=== PATIENT | female | born 1945 | race Caucasian/White ===

== ENCOUNTER 2023-09-10 16:28 | Inpatient (IN) | payer MEDICARE ==
[~2023-09-10] VITALS: Ht 167.6 cm; Wt 63.5 kg
[2023-09-10] MEDS ORDERED: MAGNESIUM HYDROXIDE 30 ML UDC PO PRN (20:00)
[2023-09-10] MEDS ORDERED: ACETAMINOPHEN 325 MG TABLET PO PRN (20:00)
[2023-09-10] MEDS ORDERED: MAG HYDROX/AL HYDROX/SIMETH 30 ML UDC PO PRN (20:00)
[2023-09-10] MEDS ORDERED: LORAZEPAM 0.5 MG TABLET PO PRN (20:00)
[2023-09-10] MEDS ORDERED: TEMAZEPAM 7.5 MG CAPSULE PO PRN (20:00)
[2023-09-10] MEDS: BLOOD SUGAR DIAGNOSTIC 1 EACH STRIP IN ONE (20:38)
[2023-09-10 21:41] VITALS: BP 122/70; TEMP 98; O2SAT 98
[2023-09-10 21:42] VITALS: BP 122/70; TEMP 98; O2SAT 98
[2023-09-10 21:43] VITALS: BP 122/70; TEMP 98; O2SAT 98
[2023-09-11 07:43] LABS: BASOPHILS % (AUTO) 0.7 % (0.0-2.0); EOSINOPHILS # (AUTO) 0.1 K/uL (0.0-0.7); EOSINOPHILS % (AUTO) 2.1 % (0.0-6.0); HEMATOCRIT 39 % (33-45); HEMOGLOBIN 13.1 g/dL (11.5-14.8); LYMPHOCYTES # (AUTO) 1.6 K/uL (0.8-4.8); LYMPHOCYTES % (AUTO) 29.5 % (20.0-44.0); MEAN CORPUSCULAR HEMOGLOBIN 29 PG (26.0-33.0); MEAN CORPUSCULAR HGB CONC 34 g/dl (31.0-36.0); MEAN CORPUSCULAR VOLUME 87 fL (82-100); MONOCYTES # (AUTO) 0.4 K/uL (0.1-1.30); MONOCYTES % (AUTO) 7.9 % (2.0-12.0); NEUTROPHILS # (AUTO) 3.2 K/uL (1.8-8.9); NEUTROPHILS % (AUTO) 59.8 % (43.0-81.0); PLATELET COUNT (AUTO) 246 K/uL (150-450); RED BLOOD CELL COUNT(AUTO) 4.46 MIL/uL (4.0-5.2); RED CELL DISTRIBUTION WIDTH 14.8 % (11.5-15.0); WHITE BLOOD COUNT (AUTO) 5.4 K/uL (4.3-11.0)
[2023-09-11 08:00] VITALS: BP 96/66; TEMP 98.2; O2SAT 98
[2023-09-11 08:04] LABS: CALCIUM, SERUM 8.6 mg/dL (8.5-10.1); CARBON DIOXIDE 20 mmol/L (21-32); CHLORIDE 104 mmol/L (98-107); CREATININE 0.9 mg/dL (0.6-1.3); GLUCOSE 53 mg/dL (74-106); POTASSIUM 3.9 mmol/L (3.5-5.1); SODIUM SERUM 140 mmol/L (136-145); UREA NITROGEN, BLOOD 24 mg/dL (7-18)
[2023-09-11 08:26] LABS: CHOLESTEROL 212 mg/dL (<200); HDL CHOLESTEROL 87 mg/dL (40-60); LDL 94 mg/dL (0-99); TRIGLYCERIDES 105 mg/dL (30-150)
[2023-09-11 16:09] VITALS: BP 97/57; TEMP 98.6; O2SAT 96
[2023-09-11 20:42] VITALS: BP 113/68; TEMP 98.4; O2SAT 96
[2023-09-11] MEDS: risperiDONE 1 MG TABLET PO SCH (21:55)
[2023-09-12 08:00] VITALS: BP 100/66; TEMP 98.1; O2SAT 96
[2023-09-12 16:00] VITALS: BP 110/55; TEMP 98.4; O2SAT 95
[2023-09-12 16:48] LABS: APPEARANCE,URINE CLOUDY (CLEAR); BILIRUBIN,URINE NEGATIVE (NEGATIVE); BLOOD, URINE 2+ Ery/uL (NEGATIVE); COLOR,URINE YELLOW (YELLOW); KETONES,URINE NEGATIVE (NEGATIVE); LEUKOCYTE ESTERASE ,URINE 3+ (NEGATIVE); NITRITE, URINE NEGATIVE (NEGATIVE); PROTEIN,URINE NEGATIVE (NEGATIVE); UGLUCOSE NEGATIVE (NEGATIVE); UROBILINOGEN,URINE 0.2 EU/dL (0.2)
[2023-09-12 16:56] LABS: ADD URINE CULTURE YES; BACTERIA,URINE 1+ /HPF (None Seen); SQUAMOUS EPITHELIAL CELL,UR Few /HPF (None Seen)
[2023-09-12 16:57] LABS: CALCIUM OXALATE CRYSTALS,UR Few /HPF (None Seen)
[2023-09-12 17:17] LABS: AMPHETAMINE, URINE NEGATIVE (NEGATIVE); BARBITURATE, URINE NEGATIVE (NEGATIVE); BENZODIAZEPINE, URINE NEGATIVE (NEGATIVE); COCCAINE, URINE NEGATIVE (NEGATIVE); OPIATE, URINE NEGATIVE (NEGATIVE); PHENCYCLIDINE SCREEN,URINE NEGATIVE (NEGATIVE)
[2023-09-12 17:18] LABS: CANNABINOID, URINE POSITIVE (NEGATIVE)
[2023-09-12] MEDS: NITROFURANTOIN/MONOHYDRATE MACROCRYSTALS 100 MG CAPSULE PO SCH (22:00)
[2023-09-13 08:00] VITALS: BP 100/55; TEMP 98.1; O2SAT 97
[2023-09-13 16:00] VITALS: BP 125/62; TEMP 98.7; O2SAT 98
[2023-09-14 08:00] VITALS: BP 119/68; TEMP 98.1; O2SAT 100
[2023-09-14 16:00] VITALS: BP 108/63; TEMP 97.7; O2SAT 97
[2023-09-14 20:00] VITALS: BP 98/61; TEMP 98; O2SAT 98; O2SAT 99
[2023-09-15 08:00] VITALS: BP 107/63; TEMP 98.5; O2SAT 97
[2023-09-15 16:00] VITALS: BP 114/56; TEMP 98.3; O2SAT 98
[2023-09-15 20:09] VITALS: BP 104/47; TEMP 98.2; O2SAT 98
[2023-09-16 08:00] VITALS: BP 122/57; TEMP 97.7; O2SAT 94
[2023-09-16] MEDS: risperiDONE 1 MG TABLET PO SCH (12:37)
[2023-09-16 16:00] VITALS: BP 124/68; TEMP 97.8; O2SAT 96
[2023-09-17 08:00] VITALS: BP 99/63; TEMP 98; O2SAT 97
[2023-09-17 16:00] VITALS: BP 118/63; TEMP 97.8; O2SAT 96
[2023-09-17 20:00] VITALS: BP 105/54; TEMP 97.8; O2SAT 96
[2023-09-18 08:00] VITALS: BP 106/68; TEMP 97.7; O2SAT 95
[2023-09-18 16:00] VITALS: BP 112/52; TEMP 98.4; O2SAT 100
[2023-09-18 20:42] VITALS: BP 117/65; TEMP 98.4; O2SAT 95
[2023-09-19 08:00] VITALS: BP 120/70; TEMP 98.2; O2SAT 96
[2023-09-19 16:00] VITALS: BP 112/54; TEMP 98.3; O2SAT 95
[2023-09-19 21:41] VITALS: BP 101/52; TEMP 98.3; O2SAT 96
[2023-09-20 07:10] LABS: ALANINE AMINOTRANSFERASE 13 U/L (12-78); ALBUMIN 2.3 g/dL (3.4-5.0); ALKALINE PHOSPHATASE 74 U/L (46-116); ASPARTATE AMINOTRANSFERASE 10 U/L (15-37); BILIRUBIN,TOTAL 0.2 mg/dL (0.2-1.0); CALCIUM, SERUM 8.5 mg/dL (8.5-10.1); CARBON DIOXIDE 25 mmol/L (21-32); CHLORIDE 108 mmol/L (98-107); CREATININE 0.8 mg/dL (0.6-1.3); GLUCOSE 81 mg/dL (74-106); POTASSIUM 4.3 mmol/L (3.5-5.1); SODIUM SERUM 141 mmol/L (136-145); UREA NITROGEN, BLOOD 21 mg/dL (7-18)
[2023-09-20 08:00] VITALS: BP 108/64; TEMP 97.6; O2SAT 95
[2023-09-20 16:00] VITALS: BP 114/63; TEMP 98.6; O2SAT 98
[2023-09-20 20:40] VITALS: BP 105/62; TEMP 98.4; O2SAT 96
[2023-09-21 08:00] VITALS: BP 125/65; TEMP 98; O2SAT 98
[2023-09-21 16:00] VITALS: BP 124/67; TEMP 98; O2SAT 98
[2023-09-21 20:00] VITALS: BP 132/59; TEMP 98.4; O2SAT 97; O2SAT 98
[2023-09-22 08:00] VITALS: BP 113/64; TEMP 97.9; O2SAT 96
== END 2023-09-22 13:25 | DRG 885 ==
LOC: GPS 19:19
PROVIDERS: ADMIT Nurse Practitioner Psychiatric/Mental Health; ATTEND Nurse Practitioner Acute Care
DX: F20.9 Schizophrenia, unspecified (principal); N17.0 Acute kidney failure with tubular necrosis; N39.0 Urinary tract infection, site not specified; E44.0 Moderate protein-calorie malnutrition; F29 Unspecified psychosis not due to a substance or known physiological condition; Z20.822 Contact with and (suspected) exposure to COVID-19; Z73.6 Limitation of activities due to disability; E88.09 Other disorders of plasma-protein metabolism, not elsewhere classified; E86.9 Volume depletion, unspecified; B96.89 Other specified bacterial agents as the cause of diseases classified elsewhere
CPT/HCPCS: 36415; 80048-TC; 80053-TC; 80061-TC; 81001; 85025-TC; 87081-TC; 87086-TC; 97110-TC; 97116-TC; 97530-TC